=== PATIENT | female | born 1945 | race Caucasian/White ===

== ENCOUNTER 2017-08-18 07:13 | Inpatient (IN) | payer OTHER, MEDICARE ==
[~2017-08-18] VITALS: Ht 165.1 cm; Wt 86.0 kg
--- NOTE | ~2017-08-18 | HC ---
[facility] [place] [address] CONSULTATION Name: CHELA PACHECO Room #: 205-P [facility] IN M.R.#: [id number] Admission: 08/18/17 Attend Phys: Lyndon Kemp MD Discharge: Date of : 47 Report #: [id number] THIS REPORT FOR: //name// CC: Robert Vasquez FAM unknown Lyndon Eubanks [facility] DATE OF SERVICE: 08/18/2017 HISTORY OF PRESENT ILLNESS: The patient is a 72-year-old single white female who was admitted after an episode of chest pain. The patient initially presented in 2006 with chest tightness. She was taken by helicopter to [facility] where she underwent urgent cardiac catheterization by Dr. Garcia. He apparently placed a single bare metal stent in the right coronary artery. Repeat heart catheterization in 2009 showed no restenosis. She then presented in 06/2014 with crescendo angina. At that time, she had stopped taking all of her medications. I performed a repeat heart catheterization that showed 50% restenosis stent in the right coronary artery. There is an 80% stenosis in the diagonal artery and I placed a drug-eluting stent in 06/2014. In 08/2016, she complained of recurrent exertional chest tightness. She notes exertional dyspnea. I performed a repeat heart catheterization at [place] in 08/2016 that showed normal left ventricular function. The stent in the diagonal had no restenosis. The stent in the right coronary artery had 50% stenosis. I recommended medical therapy. She then did well until yesterday. She does not exercise on a regular basis. She noticed with exertion she felt some pressure in her chest that is relieved with rest. She noted it went into her back and would make her short of breath. She denied any diaphoresis, bleeding, fever or cough. She has had some flutter in her chest. No syncope. She finally came to the hospital and was admitted. PAST MEDICAL HISTORY: Otherwise, significant for hip surgery, back surgery, wrist surgery, hypertension, hyperlipidemia. MEDICATIONS: Consist of lisinopril, aspirin. She previously developed muscle aches, taking Lipitor. ALLERGIES: She has a CONTRAST IODINE. FAMILY HISTORY: Heart disease runs in her father and mother. SOCIAL HISTORY: She is single, lives in [place], [place]. 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 She quit smoking in 2003. No alcohol abuse. REVIEW OF SYSTEMS: She has had no history of stroke, asthma, peptic ulcer disease, liver disease. She has chronic kidney disease, no cancer[place] [address] CONSULTATION Name: CHELA PACHECO Room #: 205-P [facility] IN [facility]#: [id number] Admission: 08/18/17 Attend Phys: Lyndon Kemp MD Discharge: Date of : 47 Report #: [id number] admitted to [facility] in July with pneumonia. She has oxygen to use at home. PHYSICAL EXAMINATION: GENERAL: Revealed an elderly female who appeared in no distress. VITAL SIGNS: She had a blood pressure of 140/60, pulse 66, afebrile. HEENT: She was anicteric, conjunctiva pink. Mucous membranes moist. NECK: Veins nondistended. Right carotid bruit. Neck was supple. CHEST: Clear to auscultation. CARDIAC: Regular rate and rhythm. ABDOMEN: Soft, nontender. EXTREMITIES: Had no edema. Posterior pulse 2+ bilaterally. SKIN: Warm, dry. NEUROLOGIC: Nonfocal. Her ECG on admission, she had a sinus rhythm with nonspecific T-wave changes. LABORATORY DATA: Her sodium 142, potassium 4, creatinine 0.6, glucose 122. Troponin 0.10 and 0.22. Cholesterol 241, triglyceride 158, HDL 39, LDL 132. White blood cell count 3.9, hemoglobin 12.0. IMPRESSION AND RECOMMENDATIONS: 1. Possible unstable angina. The patient had previous stents in the diagonal and right coronary artery. Heart catheterization a year ago showed no significant restenosis. I would recommend a nuclear stress test. 2. Hypertension. The patient is on an ZEKE inhibitor. 3. Hyperlipidemia. The patient cannot tolerate statin drugs. 4. Carotid bruit. The patient had previous carotid Doppler study. 5. Previous tobacco abuse. 6. History of chronic obstructive pulmonary disease. <ELECTRONICALLY SIGNED> By: Robert Vasquez MD, FACC 08/19/17 1748 1706 22 Robert Vasquez MD, FACC /nt
--- NOTE | ~2017-08-18 | EKG ---
[place] [address] [facility] [place] [address] ELECTROCARDIOGRAM REPORT Name: CHELA PACHECO Room #: 205-[facility] IN M.R.#: [id number] Admission: 08/18/17 Attend Phys: Lyndon Kemp MD Discharge: 08/20/17 Date of : 47 Report #: [id number] THIS REPORT FOR: //name// [facility] Test Date: 2017-08-20 Test Time: 06:02:38 Pat Name: CHELA PACHECO Department: Room: [facility] Gender: F Wash Tank Tender: ZANDRA : 1945 Requested By: Robert Vasquez Order Number: [id number] MD: Regan Garcia Measurements Intervals [place] Rate: 71 P: 56 MS: 146 QRS: 5 QRSD: 96 T: 9 QT: 352 QTc: 383 Interpretive Statements Sinus rhythm Low voltage, extremity leads Nonspecific T wave abnormality Compared to ECG 08/19/2017 06:11:10 No significant change was found Electronically Signed On 08-20-2017 19:20:30 CDT by Regan Garcia [email or web address] <ELECTRONICALLY SIGNED> By: Regan Garcia MD, [facility] 08/20/171919 1 1 Regan Garcia MD, [facility] /EPI
--- NOTE | ~2017-08-18 | H ---
[facility] [place] [address] HISTORY AND PHYSICAL Name: CHELA PACHECO Room #: 205-P [facility] IN ..#: [id number] Admission: 08/18/17 Attend Phys: Lyndon Kemp MD Discharge: 08/20/17 Date of : 47 Report #: [id number] THIS REPORT FOR: //name// CC: Robert Vasquez FAM unknown Lyndon Kemp REASON FOR THE PRESENTATION: Chest pain. HISTORY OF PRESENT ILLNESS: A 72-year-old with past medical history of hypertension, coronary artery disease status post stenting x 2. She had bare metal stent in the right coronary artery back in 2006. In 2009, she had restenosis. She has been having chest pain on exertion for the last few days. This was relieved by rest. It was very typical of her cardiac pain. She visited over [facility]. Initial troponin was 0.17. 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 No nausea or vomiting. No syncope. PAST MEDICAL HISTORY: 1. Status post hip replacement. 2. Back surgery. 3. Coronary artery disease. 4. Hypertension. 5. Hyperlipidemia. MEDICATIONS: 1. Lisinopril, , metoprolol. 2. Aspirin. FAMILY HISTORY: Significant for coronary artery disease and cancer. REVIEW OF SYSTEMS: GENERAL: No fever or chills. CARDIOVASCULAR: Significant for chest pain. PULMONARY: No cough or hemoptysis, but significant dyspnea on exertion. GASTROINTESTINAL: No nausea or vomiting. GENITOURINARY: No frequency, no urgency. SOCIAL HISTORY: No drug or alcohol abuse. PHYSICAL EXAMINATION: GENERAL: She is alert, oriented, in no apparent distress. VITAL SIGNS: Most recent blood pressure is 140/53, respiratory rate 20, pulse rate 50, temperature 36.3. HEAD AND NECK: No jugular venous distention, no bruit, no thyromegaly. CHEST: Clear to auscultation bilaterally. CARDIOVASCULAR: Regular with no rub detected. [facility] [place] [address] HISTORY AND PHYSICAL Name: CHELA PACHECO Room #: 205-P [facility] IN [facility].#: [id number] Admission: 08/18/17 Attend Phys: Lyndon Kemp MD Discharge: 08/20/17 Date of : 47 Report #: [id number] ABDOMEN: Soft, nontender with no hepatosplenomegaly. LOWER EXTREMITIES: No edema. LABORATORY DATA: None from here; however, her laboratory values from [facility] reviewed. Initial troponin was mildly elevated to 0.17. ASSESSMENT, IMPRESSION, PLAN: 1. Angina. 2. Known coronary artery disease. 3. Hypertension. 4. Status post 2 stents in the past. 5. Admission. 6. Serial troponins. 7. Aspirin. 8. Nitroglycerin. 9. Morphine. 10. Beta rafael, statin, ZEKE inhibitor. 11. Cardiology consultation to decide about further evaluation and possible cardiac catheterization. <ELECTRONICALLY SIGNED> By: Enoc Randall MD 08/26/17 0848 0913 1014 Enoc Randall MD /nasreen
--- NOTE | ~2017-08-18 | EKG ---
[place] [address] [facility] [place] [address] ELECTROCARDIOGRAM REPORT Name: CHELA PACHECO Room #: 205-[facility] IN M.R.#: [id number] Admission: 08/18/17 Attend Phys: Lyndon Kemp MD Discharge: 08/20/17 Date of : 47 Report #: [id number] THIS REPORT FOR: //name// [facility] Test Date: 2017-08-19 Test Time: 17:36:11 Pat Name: CHELA PACHECO Department: Room: [facility] Gender: F Tray Drier Operator: Hollie MARTINEZ : 1945 Requested By: Robert Vasquez Order Number: [id number] MD: Regan Garcia Measurements Intervals [place] Rate: 70 P: 42 NM: 145 QRS: -9 QRSD: 100 T: 12 QT: 403 QTc: 435 Interpretive Statements Sinus rhythm Low voltage, extremity leads Nonspecific T wave abnormality Compared to ECG 08/19/2017 06:11:10 no significant change was found Electronically Signed On 08-20-2017 19:15:22 CDT by Regan Garcia [email or web address] <ELECTRONICALLY SIGNED> By: Regan Garcia MD, [facility] 08/20/17 1915 1736 173 Regan Garcia MD, [facility] /EPI
--- NOTE | ~2017-08-18 | EKG ---
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: ZANDRA : 1945 Requested By: Robert Vasquez Order Number: [id number] MD: Regan Garcia Measurements Intervals [place] Rate: 69 P: 47 CA: 154 QRS: -11 QRSD: 94 T: 17 QT: 387 QTc: 415 Interpretive Statements Sinus rhythm Low voltage, extremity leads Nonspecific T wave abnormality Compared to ECG 06/17/2014 08:06:09 Sinus bradycardia no longer present Electronically Signed On 08-19-2017 8:25:13 CDT by Regan Garcia [email or web address] <ELECTRONICALLY SIGNED> By: Regan Garcia MD, [facility] 08/19/17 0825 0 0 Regan aGrcia MD, [facility] /EPI
--- NOTE | ~2017-08-18 | CATHLAB ---
[facility] [address] [place] [address] INVASIVE PROCEDURE REPORT Name: CHELA PACHECO Room #: 205-P ADM IN ..#: [id number] Admission: 08/18/17 Attend Phys: Lyndon Kemp MD Discharge: Date of : 47 Date of Service: 08/19/17 173 Report #: [id number] THIS REPORT FOR: //name// APPROVED REPORT Study performed: 08/19/2017 10:50:41 Patient Details Patient Status: In-Patient Room #: 205 The patient is a 72 year-old female Event Personnel Robert Vasquez Trust Manager Assistant, Cirstopher Hylton RN, Robert Arriaza Monitor, Dora Kelsey RTR, Blu Trujillo Christine RTR Monitor, Dominga James RN food services coordinator Performed Art Access - R radial artery 59641 Initial Mod Sed Same Phys/QHP Gr5y 737132 77706 Mod Sed Same Phys/QHP Ea 235216 , Left Heart Cath w/or w/o Coronaries 0779971 [facility] NUPUR Place w/wo Plasty Single RCA 813681 Hemostasis with Hemoband 75866 Mod Sed Same Phys/QHP Ea 444929 Indication Non-STEMI , Chest pain Risk Factors Arterial Hypertension, Hypercholesterolemia Previous Procedures/Diagnoses Previous PCI Admission/Lab Medications/Medications given during procedure Heparin Unfract. Procedure Narrative The patient was brought electively to the Cardiac Catheterization Laboratory and was prepped and draped in a sterile manner. The Right Wrist^ was infiltrated with 1% Lidocaine subcutaneous anesthesia. A TRANSRADIAL SLENDER 6F GLIDESHEATH KIT #100510 sheath was inserted into the Right Radial Artery^. Coronary angiography was performed using coronary diagnostic catheters. The right coronary system was accessed and visualized with a JR4 catheter. The left coronary system was accessed and visualized with a JL4 catheter. The left ventricle was accessed and visualized with a Pigtail catheter. Left [facility] [address] [place] [address] INVASIVE PROCEDURE REPORT Name: CHELA PACHECO Room #: 205-P [facility] IN [facility].#: [id number] Admission: 08/18/17 Attend Phys: Lyndon Kemp MD Discharge: Date of : 47 Date of Service: 08/19/17 1731 Report #: [id number] ventricular/Aortic Valve gradient assessed via catheter pullback. Left ventriculogram was performed in 30 degree projection. Closure device was deployed with a Fr VASC BAND R 24CM #[id number]. The patient tolerated the procedure well and there were no complications associated with the procedure. There was no hematoma. Intraoperative Conscious Sedation Sedation start time: 15:39 Case end Time: 16:32 Fentanyl 50 mcg Versed 2 mg Fluoro Time: 4.50 minutes Dose: DAP 4528.00 cGycm2 497 mGy Contrast Type and Amount: Omnipaque 215 ml Coronary Angiography The patient's coronary anatomy is right dominant. Diagnostic Cath Left Main 0% stenosis LAD distal 70% stenosis Diagonal 1 stent noted without restenosis Circumflex 50% ostial stenosis Right Coronary 90% eccentric discrete stenosis at proximal edge of previous stent with thrombus noted Left Ventriculography The left ventricle is normal in size with normal contractility. The left ventricular ejection fraction is estimated to be 60-65%. Left ventricular wall motion abnormalities are not present. There is no mitral insufficiency. frequent pvc's noted on LV gram Hemodynamics The aortic pressure is 169/71 mmHg with a mean of 111 mmHg. The left ventricular pressure is 162/9 mmHg with a mean of mmHg. The left ventricular end diastolic pressure is 24 mmHg. There was no gradient across the aortic valve upon pullback. Pullback from the left ventricle to the aorta revealed no gradient across the aortic valve. PCI Technique Lesion Anticoagulation was achieved with Heparin. Patient was preloaded with Plavix. Percutaneous coronary intervention was performed on the proximal right coronary artery. The lesion stenosis prior to intervention was 90% with SANDRA 3 flow. A VISTA 6FR JCR4 #[id number] [place] [address] INVASIVE PROCEDURE REPORT Name: CHELA PACHECO Room #: 205-P [facility] IN .R.#: [id number] Admission: 08/18/17 Attend Phys: Lyndon Kemp MD Discharge: Date of : 47 Date of Service: 08/19/17 1730 Report #: [id number] Catheter was used to engage the ostium. A BMW Wire .014 X 190CM #[id number] Interventional Guidewire was used to cross the lesion. BALLOON DILATION A Balloon catheter Euphora RX 2.5 x 10 #[id number] was inserted and inflated up to 16.00atm for 16seconds. Repeat angiography revealed the following post-dilatation results: 50% stenosis. STENT DEPLOYMENT A drug-eluting stent XIENCE ALPINE RX 3.0 X 12 #[id number] was inserted and inflated up to 10.00atm for 9seconds. Repeat angiography revealed the following post-stent deployment results: 0% stenosis. Additional Inflation: 13.00atm for 13seconds. Final angiography reveals 0 % stenosis with SANDRA 3 flow. Conclusion 1. no restenosis noted of a stent in the diagonal artery 2. 70% stenosis noted of the distal lad, and 50% stenosis noted of the ostium of the circumflex artery 3. 90% proximal edge restenosis noted of a stent in the proximal rca 4. succesful placement of a single drug eluting stent in the proximal rca Recommendations Cardiac Rehabilitation Referral Aggressive Medical Therapy <ELECTRONICALLY SIGNED> By: Robert Vasquez MD, FACC 08/19/171730 30 30 Robert Vasquez MD, FACC /INF
[~2017-08-18 07:13] MED LIST: ADULT LOW DOSE81 MG PO; BENADRYL25 MG OR; BYSTOLIC 5 MG5 M1 PO; LIPITOR40 MG PO; LISINOPRIL10 MG PO; LOPRESSOR25; LOPRESSOR25 PO; LOPRESSOR50 MG PO; NITROGLYCERIN0.4 MG SUBLING; PLAVIX 75 MG TA75 M1 PO; PREDNISONE 20 M20 MG OR; QUINAPRIL 20 MG20 MG; TYLENOL325 MG PO; ZETIA10 MG PO
[2017-08-18 09:00] VITALS: BP 142/53
[2017-08-18 10:09] LABS: HEMATOCRIT 35.9 % (37.0-47.0); MCH 29.7 pg (26.0-34.0); MCHC 33.6 g/dL (28.0-37.0); MCV 88.5 fL (80.0-100.0); RBC 4.05 mil/uL (4.20-5.00); RDW 14.6 % (10.5-14.5); WBC 3.9 thou/uL (4.0-11.0)
[2017-08-18 10:23] LABS: CREATININE 0.6 mg/dL (0.6-1.0)
[2017-08-18 10:29] LABS: ALBUMIN 3.4 g/dL (3.4-5.0); TOTAL BILIRUBIN 0.3 mg/dL (<0.1-1.0); TOTAL PROTEIN 6.6 g/dL (6.4-8.2)
[2017-08-18 10:31] LABS: CHOLESTEROL 241 mg/dL (<200); HDL CHOLESTEROL 79 mg/dL (>40); LDL CHOLESTEROL 132 mg/dL (<100); SERUM ASSESSMENT Clear; TC:HDL 3.1 Ratio (Not establshd); TRIGLYCERIDE 150 mg/dL (<150); VLDL 30 mg/dL (<40)
[2017-08-18 11:45] VITALS: BP 142/54
[2017-08-18 15:25] VITALS: BP 142/53
[2017-08-18 21:05] VITALS: BP 150/62
[2017-08-18 23:36] VITALS: BP 161/66
[2017-08-19] VITALS (11 sets, daily range): BP systolic 126–183; BP diastolic 48–91
[2017-08-20 04:20] VITALS: BP 149/58
[2017-08-20 04:28] VITALS: BP 133/49
[2017-08-20 05:15] LABS: CALCIUM 9.3 mg/dL (8.5-10.1); CREATININE 0.7 mg/dL (0.6-1.0); POTASSIUM 4.3 mmol/L (3.5-5.1)
[2017-08-20 05:16] LABS: CORRECTED WBC 4.3 thou/uL (4.0-11.0); HEMATOCRIT 36.1 % (37.0-47.0); HEMOGLOBIN 12.3 gm/dL (12.0-15.0); MCH 30.2 pg (26.0-34.0); MCHC 34.1 % (28.0-37.0); MCV 88.5 fL (80.0-100.0); RBC 4.08 mil/uL (4.20-5.00); RDW 14.3 % (10.5-14.5); WBC 4.3 thou/uL (4.0-11.0)
[2017-08-20 05:17] LABS: BASOPHILS 0.3 % (0.0-2.0); EOSINOPHILS 0.1 % (0.0-3.0); LYMPHOCYTES 11.9 % (24.0-44.0); MONOCYTES 1.4 % (1.0-8.0); PLATELET COUNT 249 thou/uL (150-400); POLYS 86.3 % (36.0-66.0)
[2017-08-20 08:22] VITALS: BP 134/46
[2017-08-20 11:09] VITALS: BP 129/46
[2017-08-20] MEDS ORDERED: LISINOPRIL5 MG PO (13:13)
[2017-08-20] MEDS ORDERED: CLOPIDOGREL75 MG PO (13:13)
[2017-08-20] MEDS ORDERED: CRESTOR20 MG PO (13:15)
[2017-08-20 13:27] VITALS: BP 129/46
[2017-08-20 13:40] VITALS: BP 129/46
== END 2017-08-20 14:15 | disposition home or self-care (01) | DRG 246 ==
LOC: 2N 07:13 → ENTRNSPT 08-20 13:38 → EDTRNSPTSTS 08-20 13:41 → 2N 08-20 14:15
PROVIDERS: Hospitalist
DX: T82.855A Stenosis of coronary artery stent, initial encounter (principal); I21.4 Non-ST elevation (NSTEMI) myocardial infarction; I10 Essential (primary) hypertension; E78.5 Hyperlipidemia, unspecified; R09.89 Other specified symptoms and signs involving the circulatory and respiratory systems; J44.9 Chronic obstructive pulmonary disease, unspecified; I25.119 Atherosclerotic heart disease of native coronary artery with unspecified angina pectoris; Z96.649 Presence of unspecified artificial hip joint; G47.00 Insomnia, unspecified; R73.9 Hyperglycemia, unspecified; Z28.21 Immunization not carried out because of patient refusal; Z91.041 Radiographic dye allergy status; Z82.49 Family history of ischemic heart disease and other diseases of the circulatory system; Z87.891 Personal history of nicotine dependence; Z95.5 Presence of coronary angioplasty implant and graft; Z79.82 Long term (current) use of aspirin; Z79.899 Other long term (current) drug therapy
CPT/HCPCS: 10081

== ENCOUNTER 2018-12-02 06:38 | Observation (INO) | payer OTHER, MEDICARE ==
[~2018-12-02] VITALS: Ht 165.1 cm; Wt 94.8 kg
[~2018-12-02 06:38] MED LIST changes: +CLOPIDOGREL75 MG PO; +CRESTOR20 MG PO; +LISINOPRIL5 MG PO
[2018-12-02 07:05] VITALS: BP 177/59
[2018-12-02] MEDS ORDERED: METFORMIN HCL500 MG PO (07:13)
[2018-12-02] MEDS ORDERED: BEVESPI AEROS10.7 GM INH (07:15)
[2018-12-02] MEDS ORDERED: DEMADEX20 MG PO (07:16)
[2018-12-02 07:51] VITALS: BP 132/43
--- NOTE | 2018-12-02 11:29 | CATHLAB ---
[facility] [place] [address] INVASIVE PROCEDURE REPORT Name: CHELA PACHECO Room #: REG CL [facility]#: [id number] ������������� Admission: 12/02/18 ������������� Attend Phys: Regan Garcia, Discharge: ��� ������������� ��� Date of : 47 Date of Service: 12/02/18 1129 �� Report #: [id number] �������� ��������������������������������������������[id number] THIS REPORT FOR: //name// APPROVED REPORT Study performed: 12/02/2018 08:44:37 Patient Details The patient is a 73 year-old female Event Personnel Regan Garcia Barn And Property Manager, Cristopher Hylton RN, Ja Rae RN RN, Corbin Esteban RTR Jacy, Nadiya Dunn Monitor Procedures Performed Right and Left Heart Cath w/or w/o Coronarie 5455809 [facility] NUPUR Place w/wo Plasty Single RCA 862916 Hemostasis w/ Mynx Indication Chest pain Procedure Narrative The Right Groin^ was infiltrated with 1% Lidocaine subcutaneous anesthesia. A Right Heart Catheterization was performed with a 7 Fr. [place]-Jennifer catheter and pressure were recorded. Cardiac outputs were obtained by the Thermal Dilution method. A PINNACLE 6FR Sheath #[id number] sheath was inserted into the RFA 6F^. Coronary angiography was performed using coronary diagnostic catheters. The right coronary system was accessed and visualized with a JR4 catheter. The left coronary system was accessed and visualized with a JL4 catheter. The left ventricle was accessed and visualized with a PIGTAIL catheter. Left ventricular/Aortic Valve gradient assessed via catheter pullback. Left ventriculogram was performed in ARCOS projection. Closure device was deployed with a Fr MYNXGRIP 6/7F #[id number]. The patient tolerated the procedure well and there were no complications associated with the procedure. There was no hematoma. Intraoperative Conscious Sedation Sedation start time: 0849 Case end Time: 1004 Fentanyl 200 mcg Versed 4 mg Fluoro Time: 6.20 minutes Dose: DAP 8501.20 cGycm2 942 mGy [facility] [address] [place] [address] INVASIVE PROCEDURE REPORT Name: CHELA PACHECO Room #: REG ON [facility]#: [id number] ������������� Admission: 12/02/18 ������������� Attend Phys: Regan Garcia, Discharge: ��� ������������� ��� Date of : 47 Date of Service: 12/02/18 1129 �� Report #: [id number] �������� ��������������������������������������������[id number] Contrast Type and Amount: Visipaque 145 ml Coronary Angiography The patient's coronary anatomy is right dominant. Diagnostic Cath Left Main Normal left main LAD Mild 20% proximal to mid LAD plaquing Diagonal 1 Previously placed diagonal branch stent with mild intrastent plaquing Circumflex 50% ostial, nondominant circumflex stenosis OM1 Mild OM branch plaquing (30-40%) Right Coronary Severe 95% proximal right coronary artery stenosis within a previously placed 3.0 mm Xience stent Most of the proximal to mid right coronary had been previously stented with mild to moderate intrastent plaquing R PDA Relatively small posterior descending free of angiographic disease RPLV Large posterior lateral branch with mild mid vessel plaquing Left Ventriculography The left ventricle is normal in size with normal contractility. The left ventricular ejection fraction is estimated to be 60-65%. Left ventricular wall motion abnormalities are not present. There is no mitral insufficiency. Hemodynamics The right atrial mean pressure is 17 mmHg. The right ventricular pressure is 63/21 mmHg. The pulmonary artery pressure is 60/47 mmHg with a mean of mmHg. The mean pulmonary capillary wedge pressure is 25 mmHg. The aortic pressure is 185/64 mmHg with a mean of 109 mmHg. The left ventricular pressure is 193/19 mmHg with a mean of mmHg. The left ventricular end diastolic pressure is 38 mmHg. The cardiac output using thermo method is 4.40 L/min. The cardiac index using thermo method is 2.21 L/min/m2. PCI Technique Lesion Anticoagulation was achieved with Heparin, Integrilin. Patient was preloaded with Effient. Percutaneous coronary intervention was performed on the proximal right coronary artery. A LAUNCHER 6FR JR 4 #[id number] Guide Catheter was used to engage the ostium. A Luge Wire .014 x 182CM #[id number] Interventional Guidewire was used to cross the lesion. BALLOON DILATION [facility] [address] [place] [address] INVASIVE PROCEDURE REPORT Name: CHELA PACHECO Room #: REG Jacky#: [id number] ������������� Admission: 12/02/18 ������������� Attend Phys: Regan Garcia, Discharge: ��� ������������� ��� Date of : 47 Date of Service: 12/02/18 1129 �� Report #: [id number] �������� ��������������������������������������������[id number] A Balloon catheter TREK NC RX 3.0 X 15 #[id number] was inserted and inflated up to 20.00atm for 52seconds. Repeat angiography revealed the following post-dilatation results: moderate residual stenosis. Additional Inflation: 14.00atm for 23seconds. STENT DEPLOYMENT A stent RESOLUTE BALJEET RX 3.0 X 12 #[id number] was inserted and inflated up to 18.00atm for 34seconds. Repeat angiography revealed the following post-stent deployment results: 0% residual stenosis. POST STENT DEPLOYMENT BALLOON DILATION A Balloon catheter TREK NC RX 3.25 X 15 #[id number] was inserted and inflated up to 12.00atm for 34seconds. Additional Inflation: 18.00atm for 34seconds. Postdilated to close to 3.4 mm with non-compliant balloon Final angiography reveals 0 % stenosis with SANDRA 3 flow. Conclusion 1. Mild to moderate pulmonary hypertension 2. Normal global and regional left ventricular systolic function. Ejection fraction 65%. 3. Normal left main. Mild proximal to mid LAD plaquing 4. Moderate ostial circumflex disease, nondominant 5. Severe proximal right coronary stenosis within a previously placed Xience stent; restented extending proximally within [place] vessel with a 3.0 x 12mm Resolute stent, post dilated to 3.4mm. SANDRA III flow Recommendations Smoking Cessation Cardiac Rehabilitation Referral Aggressive Medical Therapy ��������������������������������������������� <ELECTRONICALLY SIGNED> ���������������������������������������� By: Regan Garcia MD, [facility] ��������������������������������������������� 12/02/18 1129 1129 28 Regan Garcia MD, FAC /INF
--- NOTE | 2018-12-02 12:59 | EKG ---
[place] [address] [facility] [place] [address] ELECTROCARDIOGRAM REPORT Name: CHELA PACHECO Room #: 218-P [facility] M.R.#: [id number] ������������������ Admission: 12/02/18 ������������������ Attend Phys: Regan Garcia MD, Discharge: ������������������ Date of : 47 Report #: [id number] ����������������������������������������������������������������� [id number] THIS REPORT FOR: //name// [facility] Test Date: 2018-12-02 Test Time: 07:04:36 Pat Name: CHELA PACHECO Department: Room: 218 Gender: F Keyboard Operator: KAREN : 1945 Requested By: Regan Garcia Order Number: [id number] MD: Regan Garcia Measurements Intervals [place] Rate: 53 P: 59 OR: 143 QRS: 12 QRSD: 99 T: 42 QT: 445 QTc: 418 Interpretive Statements Sinus rhythm Nonspecific ST and T wave abnormality Compared to ECG 08/20/2017 06:02:38 No significant change was found Electronically Signed On 12-02-2018 12:59:06 CDT by Regan Garcia [email or web address] ��������������������������������������������� <ELECTRONICALLY SIGNED> ���������������������������������������� By: Regan Garcia MD, [facility] ��������������������������������������������� 12/02/18 1259 3 3 Regan Garcia MD, [facility] /EPI
--- NOTE | 2018-12-02 13:03 | EKG ---
[place] [address] [facility] [place] [address] ELECTROCARDIOGRAM REPORT Name: CHELA PACHECO Room #: 218-P [facility] M.R.#: [id number] ������������������ Admission: 12/02/18 ������������������ Attend Phys: Regan Garcia MD, Discharge: ������������������ Date of : 47 Report #: [id number] ����������������������������������������������������������������� [id number] THIS REPORT FOR: //name// [facility] Test Date: 2018-12-02 Test Time: 10:22:55 Pat Name: CHELA PACHECO Department: Room: 218 Gender: F Inspector Eyeglass Frames: KAREN : 1945 Requested By: Regan Garcia Order Number: [id number] MD: Regan Garcia Measurements Intervals [place] Rate: 58 P: 51 NC: 148 QRS: -1 QRSD: 94 T: 27 QT: 447 QTc: 440 Interpretive Statements Sinus bradycardia Low voltage, extremity leads Compared to ECG 08/20/2017 06:02:38 No significant change was found Electronically Signed On 12-02-2018 13:03:11 CDT by Regan Garcia [email or web address] ��������������������������������������������� <ELECTRONICALLY SIGNED> ���������������������������������������� By: Regan Garcia MD, [facility] ��������������������������������������������� 12/02/18 1303 1022 102 Regan Garcia MD, [facility] /EPI
[2018-12-02] MEDS ORDERED: LISINOPRIL20 MG PO (15:07)
[2018-12-02] MEDS ORDERED: EFFIENT10 MG PO (15:07)
--- NOTE | 2018-12-02 18:32 | NUR ---
PT TO THE UNIT POST CATH. STENT PLACED TO RCA. GROING SITE ESTABLE - PT WITH HTN GIVEN LISINOPRIL WITH LITTLE EFFECT ON BP - DR CARLOS CALLED AND PATIENT GIVEN NORVASC WITH BP SLOWLY STARTING TO IMPROVE. PT UP TO THE BATHROOM - BEDREST COMPLETE. RAGHU DIET AND FLUIDS. GIVEN HYDROCODONE FOR CO'S OF BACK PAIN FROM PREVIOUS SURGERY COMPLETED WITH MOD EFFECT ON PAIN. ASSESSMENTS CHARTED - IV FLUIDS COMPLETD. NO CO'S AT THE PRESENT TIME.
[2018-12-02 19:13] VITALS: BP 157/47
[2018-12-03 03:19] VITALS: BP 131/47
[2018-12-03 04:04] LABS: ALBUMIN 3.4 g/dL (3.4-5.0); ANION GAP 8 mmol/L (7-16); BUN 17 mg/dL (7-18); CALCIUM 8.6 mg/dL (8.5-10.1); CHLORIDE 107 mmol/L (98-107); CO2 28 mmol/L (21-32); CREATININE 0.8 mg/dL (0.6-1.0); GLUCOSE 182 mg/dL (74-106); POTASSIUM 4.5 mmol/L (3.5-5.1); SGOT 21 U/L (15-37); SGPT 55 U/L (30-65); SODIUM 143 mmol/L (136-145); TOTAL BILIRUBIN 0.2 mg/dL (<0.1-1.0); TOTAL PROTEIN 6.4 g/dL (6.4-8.2); TROPONIN-I <0.06 ng/mL (<0.06)
[2018-12-03 04:44] LABS: HEMATOCRIT 36.3 % (37.0-47.0); MCV 87.8 fL (80.0-100.0); RBC 4.14 mil/uL (4.20-5.00); RDW 13.6 % (10.5-14.5); WBC 5.5 thou/uL (4.0-11.0)
--- NOTE | 2018-12-03 05:28 | NUR ---
ASSUMED PT CARE AT 1900 WITH NO SIGN OF DISTRESS NOTED IN PT. PT IS ALERT AND ORIENTED AND DENIES ANY NEED. ASSESSMENT COMPLETED AND CHARTED. DENIES ANY NEED. RIGHT GROIN SITE IS INTACT. NO HEMATOMA OR BLEEDING, SCHEDULED MEDS ADMINISTERED TO PT. DENIES ANY FURTHER NEEDS AT THIS TIME.
[2018-12-03] MEDS ORDERED: CRESTOR5 MG PO (07:20)
--- NOTE | 2018-12-03 07:24 | D ---
[facility] [place] [address] DISCHARGE SUMMARY Name: CHELA PACHECO Room #: 218-P [facility]..#: [id number] Admission: 12/02/18 ������������������ Attend Phys: Regan Garcia MD, Discharge: ������������������ Date of : 47 Report #: [id number] THIS REPORT FOR: //name// CC: Regan Eubanks [place] DISCHARGE DIAGNOSES: 1. Unstable angina. 2. Severe chronic obstructive pulmonary disease with cor pulmonale (FEV1 0.9). 3. Diabetes. 4. Coronary artery disease with severe proximal intrastent stenosis with restenting (3.0 x 12 mm Resolute medicated stent). 5. Hypertension. 6. Dyslipidemia. 7. Tobacco dependency. HISTORY OF PRESENT ILLNESS: For the complete details of the history of present illness, see dictated history and physical. Briefly, the patient is a 73-year-old woman with coronary artery disease with remote stenting, severe COPD, dyslipidemia and tobacco dependency. She now presents with progressive chest pain and shortness of breath. HOSPITAL COURSE: The patient was admitted and underwent right and left heart catheterization, the results of this can be found under separate heading and dictation. In summary, moderate pulmonary hypertension was identified with a right ventricular pressure of 63/21, pulmonary artery pressure of 60/47 and a wedge pressure of 25. Coronary angiography demonstrated normal left ventricular systolic function with mild left system disease. There was a severe proximal intrastent right coronary stenosis within the 3.0 x 12 mm Xience stent that was placed 03/2018. There was some extension to this proximal in the [place] vessel. Both regions were stented with a 3.0 x 12 mm Resolute medicated stent postdilated to 3.4 mm with a noncompliant balloon. The patient was treated with heparin, Integrilin, aspirin and Effient in the periprocedural setting. Excellent groin hemostasis. DISCHARGE MEDICATIONS: Were reconciled and include the following: Aspirin 81 mg daily, Victoza, lisinopril 20 mg daily, metformin 500 mg twice daily, rosuvastatin 5 mg daily, albuterol, Effient 10 mg daily, Bevespi tablet daily, albuterol nebulizer, torsemide 20 mg daily. DISCHARGE ACTIVITY: As instructed post-catheterization. DISCHARGE DIET: Low fat, low cholesterol, prudent diabetic diet. DISCHARGE ACTIVITY: As instructed post-catheterization. [address] [address] DISCHARGE SUMMARY Name: CHELA PACHECO Room #: 218-P [facility] Jeremy Rico#: [id number] Admission: 12/02/18 ������������������ Attend Phys: Regan Garcia MD, Discharge: ������������������ Date of : 47 Report #: [id number] DISCHARGE CONDITION: Stable and improved. ��������������������������������������������� <ELECTRONICALLY SIGNED> ���������������������������������������� By: Regan Garcia MD, [facility] ��������������������������������������������� 12/03/18 0724 1210 1232 Regan Garcia MD, FACC /nt
[2018-12-03 08:52] VITALS: BP 154/52
[2018-12-03 09:31] VITALS: BP 154/52
--- NOTE | 2018-12-03 09:44 | NUR ---
ASESSMENT CHARTED - MEDS PER AUG- NO CO'S OF PAIN ORNAUSEA. RAGHU DIET AND FLUIDS. SEEN BY [facility] REHAB THIS AM PRIOR TO DISCHARGE. IV AND MONITOR REMOVED PRIOR TO D/C. PT UP AD SYLWIA IN ROOM, STEADY ON FEET. PT DISCHARGED THIS AM - INSTRUCTION RE HOME MEDS/ CARE AND FOLLOW UP GIVEN - STATED UNDERSTANDING. LEFT UNIT VIA WHEELCHAIR - HOME VIA PVT VEHICLE ACCOMPANIED BY FRIEND. NO CO'S AT TIME OF D/C.
--- NOTE | 2018-12-04 09:29 | EKG ---
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 : 1945 Requested By: Regan Garcia Order Number: [id number] MD: Regan Garcia Measurements Intervals [place] Rate: 53 P: 17 [place]: 147 QRS: 25 QRSD: 94 T: 119 QT: 695 QTc: 653 Interpretive Statements Sinus bradycardia Low voltage, extremity leads Nonspecific T abnrm Prolonged QT interval Compared to ECG 12/02/2018 10:22:55 nonspecific change in the T wave abnormality Electronically Signed On 12-04-2018 9:29:13 CDT by Regan Garcia [email or web address] ��������������������������������������������� <ELECTRONICALLY SIGNED> ���������������������������������������� By: Regan Garcia MD, [facility] ��������������������������������������������� 12/04/18 0929 0827 0827 Regan Garcia MD, [facility] /EPI
== END 2018-12-03 09:50 | disposition home or self-care (01) ==
LOC: CATH 06:38 → 2N 12:35 → CATH 14:10 → ENTRNSPT 12-03 09:34 → EDTRNSPTTM 12-03 09:37 → EDTRNSPTSTS 12-03 09:37 → 2N 12-03 09:50
PROVIDERS: ADMIT Internal Medicine
DX: I25.110 Atherosclerotic heart disease of native coronary artery with unstable angina pectoris (principal); R07.89 Other chest pain; J44.9 Chronic obstructive pulmonary disease, unspecified; E11.9 Type 2 diabetes mellitus without complications; I10 Essential (primary) hypertension; E78.5 Hyperlipidemia, unspecified; F17.200 Nicotine dependence, unspecified, uncomplicated

== ENCOUNTER → 2019-07-22 | Outpatient (CLI) | payer OTHER, MEDICARE ==
[~2019-07-22] MED LIST changes: +BEVESPI AEROS10.7 GM INH; +CRESTOR5 MG PO; +DEMADEX20 MG PO; +EFFIENT10 MG PO; +LISINOPRIL20 MG PO; +METFORMIN HCL500 MG PO
== END ==
LOC: SJCVC 14:36
DX: R00.1 Bradycardia, unspecified (principal); I25.10 Atherosclerotic heart disease of native coronary artery without angina pectoris; I11.0 Hypertensive heart disease with heart failure; I50.32 Chronic diastolic (congestive) heart failure; E78.5 Hyperlipidemia, unspecified; J43.2 Centrilobular emphysema; F17.211 Nicotine dependence, cigarettes, in remission; Z79.82 Long term (current) use of aspirin; Z79.899 Other long term (current) drug therapy

== ENCOUNTER → 2020-01-20 | Outpatient (CLI) | payer OTHER, MEDICARE | LOC: SJCVC 13:39 | PROVIDERS: ATTEND Internal Medicine | DX: I25.10 Atherosclerotic heart disease of native coronary artery without angina pectoris (principal); R94.31 Abnormal electrocardiogram [ECG] [EKG]; I11.0 Hypertensive heart disease with heart failure; I50.32 Chronic diastolic (congestive) heart failure; J43.2 Centrilobular emphysema; E78.5 Hyperlipidemia, unspecified; F17.211 Nicotine dependence, cigarettes, in remission; Z79.899 Other long term (current) drug therapy ==

== ENCOUNTER → 2020-02-16 | Outpatient (CLI) | payer OTHER, MEDICARE | LOC: SJCVCIMAG 08:12 | PROVIDERS: ATTEND Internal Medicine | DX: I25.10 Atherosclerotic heart disease of native coronary artery without angina pectoris (principal); I10 Essential (primary) hypertension; J44.9 Chronic obstructive pulmonary disease, unspecified; Z79.899 Other long term (current) drug therapy; Z87.891 Personal history of nicotine dependence ==

== ENCOUNTER → 2020-07-25 | Outpatient (CLI) | payer OTHER, MEDICARE | LOC: SJCVC 13:10 | PROVIDERS: ATTEND Internal Medicine | DX: R00.1 Bradycardia, unspecified (principal); I25.10 Atherosclerotic heart disease of native coronary artery without angina pectoris; I11.0 Hypertensive heart disease with heart failure; I50.32 Chronic diastolic (congestive) heart failure; E78.5 Hyperlipidemia, unspecified; J43.2 Centrilobular emphysema; F17.211 Nicotine dependence, cigarettes, in remission; Z98.61 Coronary angioplasty status; Z98.890 Other specified postprocedural states; Z88.8 Allergy status to other drugs, medicaments and biological substances; Z79.82 Long term (current) use of aspirin; Z79.899 Other long term (current) drug therapy; Z82.49 Family history of ischemic heart disease and other diseases of the circulatory system ==

== ENCOUNTER → 2020-08-01 | Outpatient (CLI) | payer OTHER, MEDICARE | LOC: CAT 11:35 | PROVIDERS: ATTEND Internal Medicine | DX: Z12.2 Encounter for screening for malignant neoplasm of respiratory organs (principal); I51.7 Cardiomegaly; J43.2 Centrilobular emphysema; J84.10 Pulmonary fibrosis, unspecified; I70.0 Atherosclerosis of aorta; J98.4 Other disorders of lung; Z87.891 Personal history of nicotine dependence ==

== ENCOUNTER → 2021-01-30 | Outpatient (CLI) | payer OTHER, MEDICARE | LOC: SJCVC 12:59 | PROVIDERS: ATTEND Internal Medicine | DX: R00.1 Bradycardia, unspecified (principal); I25.10 Atherosclerotic heart disease of native coronary artery without angina pectoris; I11.0 Hypertensive heart disease with heart failure; I50.32 Chronic diastolic (congestive) heart failure; E78.5 Hyperlipidemia, unspecified; J43.2 Centrilobular emphysema; J44.9 Chronic obstructive pulmonary disease, unspecified; F17.211 Nicotine dependence, cigarettes, in remission; Z87.891 Personal history of nicotine dependence; Z79.82 Long term (current) use of aspirin; Z79.899 Other long term (current) drug therapy; Z88.1 Allergy status to other antibiotic agents ==

== ENCOUNTER → 2021-07-24 | Outpatient (CLI) | payer OTHER, MEDICARE | LOC: RAD 15:29 | PROVIDERS: ATTEND Nurse Practitioner Family | DX: J44.9 Chronic obstructive pulmonary disease, unspecified (principal); Z87.891 Personal history of nicotine dependence ==

== ENCOUNTER → 2021-07-24 | Outpatient (CLI) | payer OTHER, MEDICARE | LOC: SJCVCIMAG 12:43 | PROVIDERS: ATTEND Internal Medicine | DX: I08.0 Rheumatic disorders of both mitral and aortic valves (principal); I25.10 Atherosclerotic heart disease of native coronary artery without angina pectoris; I11.0 Hypertensive heart disease with heart failure; I50.32 Chronic diastolic (congestive) heart failure; E78.5 Hyperlipidemia, unspecified; J43.2 Centrilobular emphysema; F17.211 Nicotine dependence, cigarettes, in remission; Z79.84 Long term (current) use of oral hypoglycemic drugs; Z79.899 Other long term (current) drug therapy; Z88.8 Allergy status to other drugs, medicaments and biological substances; Z86.16 Personal history of COVID-19; Z82.49 Family history of ischemic heart disease and other diseases of the circulatory system ==